=== PATIENT | male | born 1935 | race Caucasian/White ===

== ENCOUNTER 2017-09-13 08:22 | Outpatient (CLI) | payer MEDICARE ==
--- NOTE | 2017-09-13 11:26 | PET ---
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 COMPARISON: No prior PET scans. TECHNIQUE: IV injection F-18 Fluorodeoxyglucose (FDG) dose: 14.3 mCi. PET and attenuation-correction CT performed from skull base to proximal thighs. FINDINGS: SUV (standard uptake value) numbers given are maximum SUV's: Attenuation correction CT demonstrates approximately 4.0 cm infrarenal fusiform abdominal aortic aneu rysm. Suture line around the distal portion of expanded stomach, and additional surgical clips rack pusher al to the stomach in the upper abdominal cavity. Heavy atherosclerotic calcification of LAD. Multiple round moderately hypodense lesions in the left and right lobes of the liver. The largest one is a 3. 0 cm round hypodense lesion in hepatic segment II of the left lobe of the liver. It has a noncontrast CT attenuation of 20 HU. The FDG uptake has maximum SUV of 2.9. However, the SUV of background liver parenchyma is 3.5, and therefore this is indeterminate. There is an approximately 5.0 x 5.5 cm mass in the gastric fundus with density of 24 HU. It is not si gnificantly FDG-avid, with maximum SUV of 2.7. No abnormally FDG-avid lesion is identified in the abd omen, pelvis, chest, or neck. IMPRESSION: 1. 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 Therefore , this PET scan cannot be reliably used to evaluate for malignant lymphadenopathy and distant metasta sis. 2. Multiple round hypodense lesions throughout the liver. Densities are higher than serous fluid. It is uncertain whether these represent cysts or metastatic lesions from the GIST tumor. Recommend [facility] multiphase MRI or multiphase CT of the abdomen (liver mass protocol) with and without contrast. 3. Evidence for previous gastric and intestinal surgery. 4. 4.0 cm infrarenal abdominal aortic aneurysm. 5. Coronary atherosclerosis. JACQUI Carroll POS: VIKTORIA
== END 2017-09-13 08:23 | disposition home or self-care (01) ==
LOC: PET 08:22
PROVIDERS: ATTEND Internal Medicine Hematology & Oncology
DX: C49.A2 Gastrointestinal stromal tumor of stomach (principal); I71.4 Abdominal aortic aneurysm, without rupture; I25.10 Atherosclerotic heart disease of native coronary artery without angina pectoris; K76.9 Liver disease, unspecified
CPT/HCPCS: 78815; A9552

== ENCOUNTER 2017-10-04 14:18 | Outpatient (CLI) | payer MEDICARE ==
--- NOTE | 2017-10-05 09:05 | MRI ---
MRI ABDOMEN WITH AND WITHOUT CONTRAST: HISTORY: CA49.A9. Evaluate for metastatic disease. COMPARISON: PET CT 09/13/17. FINDINGS: The exam is noted on the phase of contrast due to the injector being broken. There is mass within th e lesser curvature of the stomach with minimal central enhancement and predominantly peripheral nodul ar and septal enhancement. Mass measures approximately 5.3 x 4.9 cm. Multiple masses are present wi thin the liver which have similar appearance with minimal central enhancement. In hepatic segment 2 is a mass which on the delayed phases does appear to have some peripheral and septal enhancement conc erning for a metastatic focus. This mass measures 2.5 x 2.6 cm with peripheral halo of enhancement. There are masses within hepatic segment 4A and segment 8 which are much smaller and even on delayed phase does not definitely have central enhancement, although this still is concerning. No significan t diffusion restriction of these masses, although there is no significant diffuse restriction in the gastric mass either. In hepatic segment 7, there is a mass with some faint septal enhancement on del ayed phase measuring 1.7 x 1.7 cm concerning for metastatic focus. Minimal central enhancement. There appears to be some old subcapsular hemorrhage along the spleen. Mild aneurysmal dilatation of the infrarenal abdominal aorta measuring up to 4.2 cm. Multiple parapelvic cysts and intraparenchyma l renal cysts. The aortic aneurysm may reflect a component of dissection as an intimal flap is seen series 14 of 77. No abnormal adenopathy. No dilated loops of bowel in the abdomen. IMPRESSION: 1. Multiple hepatic masses with masses of segment 2 and 7 having some low-grade peripheral internal a nd septal enhancement on the delayed phase. This follows the enhancement pattern of the predominantl y necrotic minimally enhancing mass of the lesser curvature of the stomach and the fundus. This make s all the T2 hyperintense foci within the liver suspicious for metastases for which only the largest ones can be seen within any significant enhancement. 2. Aneurysmal dilatation of the abdominal aorta, this is felt to represent a component of dissection as an intimal flap is seen. Thoracic surgical consultation recommended. 3. Evidence of an old subcapsular hemorrhage of the spleen. 4. The hepatic masses were likely non FDG avid on the PET CT due to the minimal solid internal compo nents with predominant internal necrosis. POS: NEREIDA
== END 2017-10-04 14:19 | disposition home or self-care (01) ==
LOC: SCSMRI 14:18
PROVIDERS: ATTEND Internal Medicine Hematology & Oncology
DX: C49.A9 Gastrointestinal stromal tumor of other sites (principal); R16.0 Hepatomegaly, not elsewhere classified; K31.9 Disease of stomach and duodenum, unspecified; I71.4 Abdominal aortic aneurysm, without rupture
CPT/HCPCS: 74183; 82565

== ENCOUNTER 2018-04-26 08:27 | Outpatient (CLI) | payer MEDICARE ==
--- NOTE | 2018-04-26 13:21 | PET ---
PET CT: HISTORY: 82-year-old male with GIST (gastrointestinal stomal tumor) of the stomach. Exam requested for restagi ng. TECHNIQUE: PET scanning with CT attenuation correction was performed from the base of the brain through the prox imal thighs following the intravenous administration of 12.2 mCi F18-FDG in the right hand. Imaging w as performed after an uptake interval of 59 minutes. COMPARISON: PET CT dated 09/13/17. FINDINGS: There is physiologic activity in the GI and tracts, and the visualized portions of the brain. No hypermetabolic pulmonary nodules, liver, adrenal, or skeletal lesions are seen. No abnormal FDG lo calization is seen in the gastric mass or the liver lesions seen on the CT scan used for attenuation correction. No linda hypermetabolism is seen in the neck, chest, abdomen, or pelvis. The CT scan used for attenuation correction demonstrates no evidence for pleural effusions or ascites . The 4.0 cm infrarenal abdominal aortic aneurysm is stable. IMPRESSION: No evidence of FDG-avid tumor or metastatic disease. POS: VIKTORIA
== END 2018-04-26 08:28 | disposition home or self-care (01) ==
LOC: PET 08:27
PROVIDERS: ATTEND Internal Medicine Hematology & Oncology
DX: C49.A0 Gastrointestinal stromal tumor, unspecified site (principal)
CPT/HCPCS: 78815; A9552

== ENCOUNTER 2018-10-29 07:08 | Outpatient (CLI) | payer MEDICARE ==
--- NOTE | 2018-10-29 12:59 | PET ---
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 Exam is requested for restaging. COMPARISON: PET CT dated 04/26/2018. TECHNIQUE: PET scanning with CT attenuation correction was performed from the base of the brain through the prox imal thighs, following the intravenous administration of 13.7 millicuries of F18 fluorodeoxyglucose i n the right antecubital fossa. FINDINGS: There is physiologic activity in the GI and tracts in the visualized portions of the brain. No hypermetabolic pulmonary nodules or liver, adrenal, or skeletal lesions are seen. No abnormal FDG localization is seen in the gastric mass or the liver lesions seen on the CT scan used for attenuati on correction. No linda hypermetabolism is noted in the neck, chest, abdomen, or pelvis. There is focally intense uptake in the region of the cecum, with an SUV of 8.2, which is new since last exam. The CT scan used for attenuation correction demonstrates no evidence of pleural effusions or ascites. The infrarenal abdominal aortic aneurysm is larger, measuring 4.4 cm on the current exam (previousl y 4 cm). IMPRESSION: 1. Interval development of a hypermetabolic focus in the cecum, which should be evaluated with colon oscopy. No other evidence of fluorodeoxyglucose-avid tumor or metastatic disease is seen. 2. Interval increase in the size of the infrarenal abdominal aortic aneurysm, from 4 cm on the previ ous study to 4.4 cm on the current examination. POS: VIKTORIA
== END 2018-10-29 07:09 | disposition home or self-care (01) ==
LOC: PET 07:08
PROVIDERS: ATTEND Internal Medicine Hematology & Oncology
DX: C49.A0 Gastrointestinal stromal tumor, unspecified site (principal); I71.4 Abdominal aortic aneurysm, without rupture
CPT/HCPCS: 78815; A9552

== ENCOUNTER 2019-07-24 08:23 | Outpatient (CLI) | payer MEDICARE ==
--- NOTE | 2019-07-24 12:21 | PET ---
PET CT: HISTORY: An 83-year-old male with GIST. Exam requested to evaluate for subsequent therapy. TECHNIQUE: PET scanning with CT attenuation correction was performed from the base of the brain through the prox imal thighs following the intravenous administration of 11 mCi [id number]. COMPARISON: PET CT dated 10/29/2018. FINDINGS: There has been interval development of hypermetabolic activity in the 6.5 cm mass in the lateral segm ent of the left lobe of the liver with an SUV of 10.6 and within the lesser curvature of the stomach with an SUV of 10.3. The remainder of the low-density lesions in the right lobe of the liver demonst rate no abnormal FDG localization. No linda hypermetabolism is seen in the neck, chest, axillae, abdomen, or pelvis. No hypermetabolic pulmonary nodules, adrenal, or skeletal lesions are seen. There is physiologic activity in the GI and tracts and the visualized portions of the brain. The CT scan used for attenuation correction demonstrates no evidence of pleural effusions or ascites. The 4.4 cm infrarenal abdominal aortic aneurysm is stable. IMPRESSION: Interval development of hypermetabolic activity in the gastric mass and liver mass in the lateral seg ment of the left lobe of the liver since 10/29/2018. POS: VIKTORIA
== END 2019-07-24 08:24 | disposition home or self-care (01) ==
LOC: PET 08:23
PROVIDERS: ATTEND Internal Medicine Hematology & Oncology
DX: C49.A9 Gastrointestinal stromal tumor of other sites (principal)
CPT/HCPCS: 78815; A9552

== ENCOUNTER 2019-09-19 08:18 | Outpatient (CLI) | payer MEDICARE ==
--- NOTE | 2019-09-19 10:20 | PET ---
Exam: PET SCAN WITH CT ATTENUATION CORRECTION: HISTORY: Gastrointestinal stromal tumor. COMPARISON: 07/24/2019, 10/29/2018. TECHNIQUE: PET scan with CT attenuation correction is performed from the base the brain to the proxim al thighs following the intravenous administration of 13 mCi of [id number] FINDINGS: Head and neck: No abnormal FDG localization. Chest: No abnormal FDG localization. CT used for attenuation correction demonstrates extensive mota ry artery disease. There is calcification of the aortic valve and scattered calcification in the visualized aorta. Stable aneurysmal dilatation of the infrarenal abdominal aorta. Abdomen and pelvis: Redemonstration of a hypermetabolic focus within the lumen of the stomach. Maximu m SUV is 6.7. Previously, the maximum SUV was 10.3. No additional abnormal FDG localization in the alimentary canal. There is a large hypermetabolic focus involving the left hepatic lobe. Maximum SUV is 11.8. Previousl y, the maximum SUV was 10.6. CT used for attenuation correction does demonstrate interval increase in size. Currently, the left hepatic lesion measures 7.9 x 8.4 cm, previously measuring 7.4 x 4.6 cm. Osseous structures: No abnormal FDG localization. IMPRESSION: Interval increase in size of a metastatic lesion in the left hepatic lobe, suggesting progression of disease. Transcribed Date/Time: 09/19/2019 10:40 AM
== END 2019-09-19 08:19 | disposition home or self-care (01) ==
LOC: PET 08:18
PROVIDERS: ATTEND Internal Medicine Hematology & Oncology
DX: C49.A9 Gastrointestinal stromal tumor of other sites (principal); C78.7 Secondary malignant neoplasm of liver and intrahepatic bile duct
CPT/HCPCS: 78815; A9552

== ENCOUNTER 2020-02-14 19:31 | Observation (INO) | payer MEDICARE, OTHER ==
[2020-02-14 19:56] LABS: Hemoglobin 11.2 g/dL (14.0-18.0); Mean Corpuscular HGB CONC 35.4 g/dL (32.0-36.0); Mean Corpuscular Hemoglobin 39.1 pg (27.0-31.0); Mean Platelet Volume 8.3 fL (7.4-10.4); Platelet Count 182 thou/uL (130-400); RBC Distribution Width 14.3 % (11.5-14.5); Red Blood Cell (RBC) Count 2.86 mill/uL (4.70-6.10); White Blood Cell (WBC) Count 4.2 thou/uL (4.8-10.8)
--- NOTE | 2020-02-14 20:15 | RAD ---
CHEST ONE VIEW: 02/14/20 HISTORY: Syncopal episode. Heart size is enlarged. Postop sternotomy changes are seen. The lungs are clear of any infiltrative p rocess. No signs of failure. IMPRESSION: Cardiomegaly. POS: JACEK
[2020-02-14 20:17] LABS: ALT (SGPT) 18 U/L (8-55); AST (SGOT) 22 U/L (5-34); Albumin 3.7 g/dL (3.4-4.8); Alkaline Phosphatase 74 U/L (40-110); Anion Gap 14 mmol/L (10-20); BUN (Urea Nitrogen) 27 mg/dL (8.4-25.7); Bilirubin, Total 1.8 mg/dL (0.2-1.2); CK (CPK) 121 U/L (30-200); Calc. Creatinine Clearance 0 mL/min (70-130); Calcium 8.7 mg/dL (7.8-10.44); Carbon Dioxide 22 mmol/L (23-31); Chloride 104 mmol/L (98-107); Estimated GFR-MDRD 39; Globulin 2.7 g/dL (2.4-3.5); Glucose 109 mg/dL (83-110); Lipase 37 U/L (8-78); Potassium 4.7 mmol/L (3.5-5.1); Protein, Total 6.4 g/dL (5.8-8.1); Sodium 135 mmol/L (136-145)
[2020-02-14 20:20] LABS: Hypochromia SLIGHT = 6-15 cells (100X) (0-5/hpf); Lymphocytes 18 % (21-51); MDiff Complete? YES; Macrocytosis SLIGHT = 6-15 cells (100X) (0-5/hpf); Monocytes 14 % (0-10); Neutrophil 68 % (42-75); Platelet Morphology Comment Appears Adequate
[2020-02-14] MEDS ORDERED: Acetaminophen 325 MG TAB ONE (21:09)
[2020-02-14] MEDS ORDERED: Aspirin Chewable 81 MG TAB ONE (21:22)
[2020-02-14 22:45] VITALS: BMI 33.0
[2020-02-14] MEDS ORDERED: Sodium Chloride 0.9% 1,000 ML IV SCH (22:45)
--- NOTE | 2020-02-14 22:48 | PDOC.HHP ---
Hospitalist HPI - History of Present Illness Near syncope History of Present Illness: 84-year-old gentleman with a history of significant coronary artery disease including open heart surgery and 7 cardiac stents presented to the emergency department because he felt he almost passed out. Patient stated he had been feeling faint all day and was broken out in sweat intermittently. He took a dose of sublingual nitroglycerin which did not help his symptoms. His heart rate a monitor worker in the ED was as low as 53. Initial troponin is negative. Chest x-ray showed no acute disease. EKG demonstrated sinus bradycardia at 55, T wave inversions and the lateral leads and lead I and aVL. Patient is placed under observation for further syncope work-up. Hospitalist ROS - Review of Systems Other: Except as documented, all other systems reviewed and negative. - Medication Medications: Medication Instructions Recorded Confirmed Type Aspirin 81 mg PO DAILY 02/15/20 02/15/20 History Carvedilol 25 mg PO DAILY 02/15/20 02/15/20 History Clopidogrel Bisulfate [Plavix] 75 mg PO DAILY 02/15/20 02/15/20 History Enalapril Maleate 20 mg PO BID 02/15/20 02/15/20 History Famotidine 20 mg PO DAILY 02/15/20 02/15/20 History Furosemide [Lasix] 20 mg PO DAILY PRN 02/15/20 02/15/20 History Isosorbide Mononitrate [Isosorbide 30 mg PO BID 02/15/20 02/15/20 History Mononitrate ER] Levothyroxine Sodium [Synthroid] 125 mcg PO DAILY 02/15/20 02/15/20 History SUNitinib Malate [Sutent] 1 cap PO DAILY 02/15/20 02/15/20 History Simvastatin 20 mg PO DAILY 02/15/20 02/15/20 History Spironolactone 25 mg PO DAILY 02/15/20 02/15/20 History Hospitalist History - Past Medical History Cardiac: reports: CAD, HTN, Hyperlipidemia Heme/Onc: reports: Cancer (GI stromal tumor) - Past Surgical History Other Surgical History: Bowel resection, triple bypass surgery. - Family History Other Family History: Reviewed and no significant. - Social History Smoking Status: Never smoker Alcohol: reports: None Drugs: reports: none Living Situation: With Family - Exam General Appearance: NAD, awake alert Eye: PERRL, anicteric sclera ENT: normocephalic atraumatic, no oropharyngeal lesions, moist mucosa Neck: supple, symmetric, no JVD, no thyromegaly Heart: RRR, no murmur, no gallops Respiratory: CTAB, no wheezes, no rales, no ronchi Gastrointestinal: soft, non-tender, non-distended, normal bowel sounds Extremities: no cyanosis, no edema Skin: normal turgor, no rashes Neurological: cranial nerve grossly intact, no weakness, no focal deficits Musculoskeletal: normal tone, normal strength Psychiatric: normal affect, normal behavior, A&O x 3 Hospitalist Results - Labs Result Diagrams: 02/15/20 01:49 02/15/20 01:49 Lab results: WBC 4.2 thou/uL (4.8-10.8) L 02/14/20 19:47 Hgb 11.2 g/dL (14.0-18.0) L 02/14/20 19:47 Hct 31.6 % (42.0-52.0) L 02/14/20 19:47 MCV 110.0 fL (78.0-98.0) H 02/14/20 19:47 Plt Count 182 thou/uL (130-400) 02/14/20 19:47 Sodium 135 mmol/L (136-145) L 02/14/20 19:47 Potassium 4.7 mmol/L (3.5-5.1) 02/14/20 19:47 Chloride 104 mmol/L (98-107) 02/14/20 19:47 Carbon Dioxide 22 mmol/L (23-31) L 02/14/20 19:47 BUN 27 mg/dL (8.4-25.7) H 02/14/20 19:47 Creatinine 1.68 mg/dL (0.7-1.3) H 02/14/20 19:47 Glucose 109 mg/dL (83-110) 02/14/20 19:47 Calcium 8.7 mg/dL (7.8-10.44) 02/14/20 19:47 Total Bilirubin 1.8 mg/dL (0.2-1.2) H 02/14/20 19:47 AST 22 U/L (5-34) 02/14/20 19:47 ALT 18 U/L (8-55) 02/14/20 19:47 Alkaline Phosphatase 74 U/L (40-110) 02/14/20 19:47 Creatine Kinase 121 U/L (30-200) 02/14/20 19:47 Troponin I Less than 0.010 ng/mL (< 0.028) 02/14/20 19:47 B-Natriuretic Peptide 172.8 pg/mL (0-100) H 02/14/20 19:47 Serum Total Protein 6.4 g/dL (5.8-8.1) 02/14/20 19:47 Albumin 3.7 g/dL (3.4-4.8) 02/14/20 19:47 Lipase 37 U/L (8-78) 02/14/20 19:47 - Radiology Interpretation Chest x-ray Status: report reviewed by me (No acute cardiopulmonary process.) Hospitalist H&P A/P - Problem (1) Syncope Code(s): R55 - SYNCOPE AND COLLAPSE Status: Acute (2) Coronary artery disease Code(s): I25.10 - ATHSCL HEART DISEASE OF [place] CORONARY ARTERY W/O ANG PCTRS Status: Acute (3) Sinus bradycardia Code(s): R00.1 - BRADYCARDIA, UNSPECIFIED Status: Acute (4) GIST (gastrointestinal stromal tumor), malignant Code(s): C49.A0 - GASTROINTESTINAL STROMAL TUMOR, UNSPECIFIED SITE Status: Acute (5) Liver metastasis Code(s): C78.7 - SECONDARY MALIG NEOPLASM OF LIVER AND INTRAHEPATIC BILE DUCT Status: Acute (6) Hypertension Code(s): I10 - ESSENTIAL (PRIMARY) HYPERTENSION Status: Acute - Plan Plan: Place under observation. Continue to trend troponin. Aspirin, beta-luis armando. Check lipid profile Check echocardiogram Nuclear stress test Obtain orthostatic vitals Cardiology consult. Validate and reconcile home medications. Continue oral chemotherapy
[2020-02-14 23:34] LABS: Troponin I 0.019 ng/mL (< 0.028)
[2020-02-15 02:10] LABS: #Basophils 0.1 thou/uL (0.0-0.2); #Eosinphils 0.1 thou/uL (0.0-0.7); #Monocytes 0.4 thou/uL (0.11-0.59); #Neutrophils 2.3 thou/uL (1.40-6.50); %Basophils 1.3 % (0.0-1.0); %Eosinophils 2.1 % (0.0-10.0); %Monocytes 11.3 % (0.0-10.0); %Neutrophils 60.4 % (42.0-75.0); Hemoglobin 10.9 g/dL (14.0-18.0); Mean Corpuscular HGB CONC 35.6 g/dL (32.0-36.0); Mean Corpuscular Hemoglobin 39.2 pg (27.0-31.0); Platelet Count 164 thou/uL (130-400); RBC Distribution Width 14.1 % (11.5-14.5); Red Blood Cell (RBC) Count 2.77 mill/uL (4.70-6.10); White Blood Cell (WBC) Count 3.9 thou/uL (4.8-10.8)
[2020-02-15 02:33] LABS: Anion Gap 15 mmol/L (10-20); BUN (Urea Nitrogen) 25 mg/dL (8.4-25.7); Calc. Creatinine Clearance 60 mL/min (70-130); Calcium 8.3 mg/dL (7.8-10.44); Carbon Dioxide 22 mmol/L (23-31); Chloride 103 mmol/L (98-107); Estimated GFR-MDRD 48; Glucose 113 mg/dL (83-110); Potassium 4.1 mmol/L (3.5-5.1); Sodium 136 mmol/L (136-145)
[2020-02-15 02:34] LABS: Troponin I 0.019 ng/mL (< 0.028)
--- NOTE | 2020-02-15 08:35 | PDOC.FMACP ---
Advance Care Planning - Problem (1) Syncope Status: Acute Code(s): R55 - SYNCOPE AND COLLAPSE (2) Coronary artery disease Status: Acute Code(s): I25.10 - ATHSCL HEART DISEASE OF [place] CORONARY ARTERY W/O ANG PCTRS (3) Sinus bradycardia Status: Acute Code(s): R00.1 - BRADYCARDIA, UNSPECIFIED (4) GIST (gastrointestinal stromal tumor), malignant Status: Acute Code(s): C49.A0 - GASTROINTESTINAL STROMAL TUMOR, UNSPECIFIED SITE (5) Liver metastasis Status: Acute Code(s): C78.7 - SECONDARY MALIG NEOPLASM OF LIVER AND INTRAHEPATIC BILE DUCT (6) Hypertension Status: Acute Code(s): I10 - ESSENTIAL (PRIMARY) HYPERTENSION - Note Summary: Advanced Care Planning was discussed. The diagnosis, prognosis and goals of care were discussed. Appropriate forms and documentation to accomplish the goals of care were discussed. All questions were answered. The Palliative Care Team will be engaged to assist with completion of any outstanding forms that are needed. Time Spent (mins): 16
[2020-02-15] MEDS ORDERED: Enoxaparin Sodium 40 MG/0.4 ML SYRINGE SC SCH (09:00)
[2020-02-15] MEDS ORDERED: Regadenoson 0.4 MG/5 ML SYRINGE ONE (12:36)
[2020-02-15] MEDS ORDERED: Furosemide 20 MG TAB PO PRN (12:38)
--- NOTE | 2020-02-15 12:54 | PDOC.HOSPP ---
- Subjective Encounter Date: 02/15/20 Encounter Time: 12:40 Subjective: f/u for near syncope of unclear etiology. Initially received IVF's now d/c'd. - Objective Vital Signs & Weight: Vital Signs (12 hours) Temp Pulse Resp BP Pulse Ox 02/15/20 07:21 98.3 F 58 L 16 132/61 97 02/15/20 03:42 97.3 F L 60 18 127/59 L 97 Weight Weight 230 lb I&O: 02/14/20 02/15/20 02/16/20 06:59 06:59 06:59 Intake Total 640 Output Total 125 Balance 515 Result Diagrams: 02/15/20 01:49 02/15/20 01:49 Additional Labs: Laboratory Tests 02/14/20 02/14/20 02/14/20 19:47 19:47 19:47 WBC 4.2 L Hgb 11.2 L MCV 110.0 H Carbon Dioxide 22 L BUN 27 H Creatinine 1.68 H Troponin I Less than 0.010 B-Natriuretic Peptide 02/14/20 02/14/20 02/15/20 19:47 22:53 01:49 WBC Hgb MCV Carbon Dioxide BUN Creatinine Troponin I 0.019 0.019 B-Natriuretic Peptide 172.8 H EKG Reviewed by me: Yes (Tele - sinus [place]) Hospitalist ROS - Medication Medications: Active Medications Generic Name Dose Route Start Last Admin Trade Name Freq PRN Reason Stop Dose Admin Enoxaparin Sodium 40 mg 02/15/20 09:00 02/15/20 08:52 Enoxaparin Sodium 40 Mg/0.4 Ml Syringe SC 40 mg 0900 PONCHO Administration Hosp A/P (1) Near syncope Status: Acute Plan: Etiology unclear, 2D echo pending, check Orthostatic vitals, CHARGE OPERATOR pending, ? contribution of dehydration (2) Coronary artery disease Code(s): I25.10 - ATHSCL HEART DISEASE OF [place] CORONARY ARTERY W/O ANG PCTRS Status: Chronic Plan: CHARGE OPERATOR pending, 2D echo pending, ASA/Plavix/Coreg (3) Sinus bradycardia Code(s): R00.1 - BRADYCARDIA, UNSPECIFIED Status: Chronic Plan: Stable currently, continue Tele monitoring (4) Acute kidney injury superimposed on CKD Code(s): N17.9 - ACUTE KIDNEY FAILURE, UNSPECIFIED; N18.9 - CHRONIC KIDNEY DISEASE, UNSPECIFIED Status: Acute Plan: Start low-volume IVF's, avoid nephrotoxic meds and limit contrast exposure - Plan out of bed/ambulate, DVT proph w/SCDs Stable currently CHARGE OPERATOR pending today 2D echo pending Start IVF's NS @ 75ml/h Continue ASA/Plavix/Coreg AM lab: BMP, CBC
[2020-02-15] MEDS ORDERED: Sodium Chloride 0.9% 1,000 ML IV SCH (13:15)
[2020-02-15 13:25] LABS: SARS-CoV-2 MS2 Positive; SARS-CoV-2 N Gene Negative; SARS-CoV-2 S Gene Negative; SARS-CoV-2 by NAA Not Detected (NotDetected); SARS-CoV-2 orf1ab Negative
[2020-02-15 13:58] VITALS: TEMP 98.1
--- NOTE | 2020-02-15 15:23 | CON ---
DATE OF CONSULTATION: REASON FOR CONSULTATION: Lightheadedness, presyncope. PRIMARY RESEARCH ELECTRICIAN: Daniel Medina MD HISTORY OF PRESENT ILLNESS: Mr. Mata is an 84-year-old gentleman who has a history of CAD, status post bypass surgery in addition to 7 to 8 stents per patient. He states he has had significant stressors recently. He states he was resting in his van. He quickly. He developed lightheadedness and presyncope. No true syncope noted. No chest pain, pressure, shortness of breath, or other associated symptoms. This is unlike his previous episode of angina prior to stent placement. He states he recently underwent coronary angiography [address] Daniel Medina. He had a stent placed. He also admits to not having good p.o. intake over the last several days. He has a history of having enlarged heart, currently on Coreg and Plavix. PAST MEDICAL HISTORY: CAD, status post stent placement and bypass surgery, hypertension, hyperlipidemia, stomach cancer, and bowel resection. HOME MEDICATIONS: Include: 1. Aspirin. 2. Carvedilol. 3. Plavix. 4. Enalapril. 5. Famotidine. 6. Lasix. 7. Isosorbide. 8. Levothyroxine. 9. . 10. Simvastatin. 11. Spironolactone. REVIEW OF SYSTEMS: A 10-point review of systems is reviewed and is as above. SOCIAL HISTORY: No current tobacco or alcohol use. PHYSICAL EXAMINATION: GENERAL: Patient is a pleasant male who is in no acute distress. The patient appears their stated age. VITAL SIGNS: Blood pressure 152/72, pulse 56, and temperature 98.1. NEUROLOGIC: The patient is alert and oriented x3 with no focal neurologic deficits. HEENT: Sclerae without icterus. Mouth has moist mucous membranes with normal pallor. NECK: No JVD. Carotid upstroke brisk. No bruits bilaterally. LUNGS: Clear to auscultation with unlabored respirations. BACK: No scoliosis or kyphosis. CARDIAC: Regular rate and rhythm with normal S1 and S2. No S3 or S4 noted. No significant rubs, murmurs, thrills, or gallops noted throughout the precordium. PMI is not displaced. There is no parasternal heave. ABDOMEN: Soft, nontender, nondistended. No peritoneal signs present. No hepatosplenomegaly. No abnormal striae. EXTREMITIES: 2+ femoral and 2+ dorsalis pedis pulses. No cyanosis, clubbing, or edema. SKIN: No gross abnormalities. PERTINENT LABORATORY DATA: CK-troponin negative. Hemoglobin 10.9. Creatinine 1.14, down from 1.68. BNP of 172. Stress and rest myocardial perfusion study pending. IMPRESSION: 1. Presyncope. 2. Coronary artery disease. 3. Status post bypass surgery. 4. Status post stent placement. RECOMMENDATIONS: We will await findings on a recent stress study. His symptoms are likely related to volume contraction. His creatinine and BUN were both elevated suggesting the above. If his scan was felt to be low risk, it would be okay from my standpoint to discharge home with close outpatient followup. He can follow up with Dr. Daniel Medina. Otherwise, I have no further recommendations. Job ID: [id number]
--- NOTE | 2020-02-15 15:51 | NM ---
MYOCARDIAL PERFUSION SCAN WITH SPECT IMAGING: History: Chest pain. History of coronary artery disease. Technique: Examination was performed using 28.1 mCi 99M Technetium Sestamibi on stress and 11 mCi on the resting images. FINDINGS: There is a persistent fixed defect in the lateral wall. No definite ischemic change. Wall motion: There is suggestion of some hypokenesis within the lateral wall. Left ventricular ejection fraction: The calculated left ventricular ejection fraction is 43%. IMPRESSION: Lateral wall scar. Reduced ejection fraction of 43%. POS: OFF
[2020-02-15 16:25] VITALS: BP 147/66
[2020-02-15] MEDS ORDERED: Lisinopril 20 MG TAB PO SCH (21:00)
[2020-02-15] MEDS ORDERED: FLU VACC QS2020-21(65YR UP)/PF 240 MCG/0.7 ML SYRINGE IM ONE (21:00)
[2020-02-15] MEDS ORDERED: Atorvastatin Calcium 10 MG TAB PO SCH (21:00)
--- NOTE | 2020-02-15 21:49 | CON ---
DATE OF CONSULTATION: 02/15/2020 ADDENDUM: Mr. Mata's stress study was negative for ischemia. He did have a lateral wall scar with LVEF 43%. Based on his current symptoms and previous history of coronary artery disease and no ischemia, it would be okay from my standpoint to discharge home with close outpatient followup. We would recommend following up with his pouncer machine within 1 week. Otherwise, I have no further recommendations. Job ID: [id number]
--- NOTE | 2020-02-16 03:26 | DIS ---
DATE OF ADMISSION: 02/14/2020 DATE OF DISCHARGE: 02/15/2020 DISCHARGE DIAGNOSES: 1. Near syncope secondary to dehydration. 2. Coronary artery disease, chronic and stable. 3. Sinus bradycardia, chronic. 4. Acute kidney injury on chronic kidney disease stage 2. 5. Gastrointestinal stromal tumor. CONSULTATIONS: Dr. Figueroa Osborne with Cardiology Service. PERTINENT LABORATORY AND X-RAY FINDINGS: Creatinine ranged between 1.41 to 1.68. Estimated GFR ranged between 39 to 48. Troponin I negative x3. BNP 173. Lipase 37. CBC showed a hemoglobin ranged between 10.9 to 11.2. COVID-19 PCR not detected, 02/14/2020. Portable chest x-ray dated 02/14/2020 showed cardiomegaly without acute process. Cardiolite stress test dated 02/15/2020 showed lateral wall scarring with ejection fraction of 43%. 2D transthoracic echocardiogram dated 02/15/2020 showed ejection fraction of 45% to 50%. Technically limited study with poor endocardial definition. Ojkrnkek-do-myxtae left atrial enlargement. Moderate mitral regurgitation. Moderate aortic regurgitation. Moderate aortic stenosis. HOSPITAL COURSE: The patient was admitted to the telemetry unit after presenting status post near syncopal episode. The patient underwent extensive evaluation with serial troponin I negative x3. The patient underwent cardiac stress testing showing a lateral wall scarring and ejection fraction calculated at 43%. The patient was evaluated by the Cardiology Service with recommendations for medical management and outpatient followup. The patient was noted with acute kidney injury in the context of chronic kidney disease and volume depletion, given IV fluids with overall stabilization of vital signs. The patient was encouraged in increased free water intake and follow up with his primary care provider. Overall, the patient did remain clinically stable during the hospital course, tolerating regular oral intake with stable vital signs. I have examined the patient at the time of discharge and discussed followup instructions. The patient verbalizes understanding and agreement, ready for discharge on 02/15/2020. DISCHARGE MEDICATIONS: 1. Aspirin 81 mg p.o. daily. 2. Plavix 75 mg p.o. daily. 3. Carvedilol 25 mg p.o. daily. 4. Enalapril 20 mg p.o. b.i.d. 5. Pepcid 20 mg p.o. daily. 6. Isosorbide mononitrate 30 mg p.o. b.i.d. 7. Lasix 20 mg p.o. daily. 8. Simvastatin 20 mg p.o. daily. 9. Spironolactone 25 mg p.o. daily. 10. Levothyroxine 125 mcg p.o. daily. 11. Sutent 37.5 mg per Medical Oncology recommendations. FOLLOWUP: The patient may follow up with Dr. Ronen Castro within 7 days of discharge. The patient may follow up with Dr. Daniel Medina with Cardiology Service. CONDITION ON DISCHARGE: Stable. ACTIVITY: Ad-daniel. DIET: Heart healthy. CODE STATUS: Full. DISPOSITION: Home, 02/15/2020. TIME SPENT: Total time preparing and coordinating discharge is 32 minutes. Job ID: [id number]
[2020-02-16] MEDS ORDERED: Levothyroxine Sodium 125 MCG TAB PO SCH (06:00)
[2020-02-16] MEDS ORDERED: Spironolactone 25 MG TAB PO SCH (08:00)
[2020-02-16] MEDS ORDERED: Aspirin Chewable 81 MG TAB PO SCH (09:00)
[2020-02-16] MEDS ORDERED: Carvedilol 25 MG TAB PO SCH (09:00)
[2020-02-16] MEDS ORDERED: SUNITINIB MALATE 37.5 MG PO SCH (09:00)
[2020-02-16] MEDS ORDERED: Clopidogrel Bisulfate 75 MG TAB PO SCH (09:00)
[2020-02-16] MEDS ORDERED: Famotidine 20 MG TAB PO SCH (09:00)
== END 2020-02-15 19:36 | disposition home or self-care (01) ==
LOC: ERS 19:31 → 2NO 21:08
PROVIDERS: ADMIT Internal Medicine; ATTEND Internal Medicine
DX: R55 Syncope and collapse (principal); R42 Dizziness and giddiness; I25.10 Atherosclerotic heart disease of native coronary artery without angina pectoris; R00.1 Bradycardia, unspecified; I12.9 Hypertensive chronic kidney disease with stage 1 through stage 4 chronic kidney disease, or unspecified chronic kidney disease; N18.2 Chronic kidney disease, stage 2 (mild); N17.9 Acute kidney failure, unspecified; E78.5 Hyperlipidemia, unspecified; C49.A0 Gastrointestinal stromal tumor, unspecified site; C78.7 Secondary malignant neoplasm of liver and intrahepatic bile duct; Z79.02 Long term (current) use of antithrombotics/antiplatelets; Z79.82 Long term (current) use of aspirin; Z79.899 Other long term (current) drug therapy; Z20.828 Contact with and (suspected) exposure to other viral communicable diseases
CPT/HCPCS: 71045; 78452; 80048; 80053; 82550; 83690; 83880; 84484 ×3; 85025 ×2; 93005; 93017; 93306; 99285; A9500; U0003; 36415; 87635; 96372; G0378; J1650; J2785

== ENCOUNTER 2020-03-04 21:26 | Observation (INO) | payer MEDICARE, OTHER ==
--- NOTE | 2020-03-04 21:57 | RAD ---
Chest AP view INDICATION: Syncope COMPARISON: February 14, 2020 FINDINGS: Lungs: The lungs are clear Cardiac silhouette: Stable mild cardiomegaly and post-CABG change Pulmonary vasculature: Normal Pleural spaces: No pleural effusion or pneumothorax is demonstrated. Upper abdomen: No abnormality seen. Osseous structures: No acute osseous abnormality. Additional findings: None. IMPRESSION: No acute cardiopulmonary abnormality.
[2020-03-04 22:28] LABS: #Eosinphils 0.2 thou/uL (0.0-0.7); #Lymphocytes 0.9 thou/uL (1.20-3.40); #Monocytes 0.6 thou/uL (0.11-0.59); #Neutrophils 2.7 thou/uL (1.40-6.50); %Basophils 0.9 % (0.0-1.0); %Eosinophils 4.8 % (0.0-10.0); %Lymphocytes 20.8 % (21.0-51.0); %Monocytes 12.9 % (0.0-10.0); %Neutrophils 60.6 % (42.0-75.0); Hemoglobin 11.1 g/dL (14.0-18.0); Mean Corpuscular HGB CONC 35.7 g/dL (32.0-36.0); Mean Corpuscular Hemoglobin 40.4 pg (27.0-31.0); Platelet Count 166 thou/uL (130-400); RBC Distribution Width 14.1 % (11.5-14.5); Red Blood Cell (RBC) Count 2.75 mill/uL (4.70-6.10); White Blood Cell (WBC) Count 4.5 thou/uL (4.8-10.8)
[2020-03-04 22:57] LABS: ALT (SGPT) 20 U/L (8-55); AST (SGOT) 29 U/L (5-34); Albumin 3.7 g/dL (3.4-4.8); Alkaline Phosphatase 84 U/L (40-110); Anion Gap 12 mmol/L (10-20); BUN (Urea Nitrogen) 23 mg/dL (8.4-25.7); Bilirubin, Total 1.3 mg/dL (0.2-1.2); Calc. Creatinine Clearance 0 mL/min (70-130); Calcium 8.4 mg/dL (7.8-10.44); Carbon Dioxide 26 mmol/L (23-31); Chloride 103 mmol/L (98-107); Estimated GFR-MDRD 55; Globulin 2.5 g/dL (2.4-3.5); Glucose 116 mg/dL (83-110); Potassium 4.2 mmol/L (3.5-5.1); Protein, Total 6.2 g/dL (5.8-8.1); Sodium 137 mmol/L (136-145)
[2020-03-04 23:11] LABS: CKMB 1.5 ng/mL (0-6.6)
[2020-03-04 23:21] LABS: Bilirubin Negative (Negative); Blood, Urine Negative (Negative); Clarity Clear (Clear); Glucose, Urine (Dipstick) Normal (Negative); Ketone, Urine Negative (Negative); Leukocyte Negative Leu/uL (Negative); Nitrite Negative (Negative); Protein, Urine (Dipstick) 20 mg/dL (Neg-Trace); Specific Gravity, Urine 1.027 (1.002-1.036); Urobilinogen 3 mg/dL (Less than 2); pH, Urine 5.5 (5.0-9.0)
[2020-03-05] MEDS ORDERED: Acetaminophen 325 MG TAB PO PRN (00:08)
--- NOTE | 2020-03-05 00:55 | PDOC.EVN ---
Event Note - Event Note Event Note: [id number] HP dictated
[2020-03-05] MEDS ORDERED: Sodium Chloride 0.9% 1,000 ML IV SCH (01:00)
--- NOTE | 2020-03-05 01:39 | HP ---
CHIEF COMPLAINT: Syncope. HISTORY OF PRESENT ILLNESS: Mr. Mata is an 84-year-old male with past medical history of GI stromal tumor with liver metastasis, congestive heart failure?, hypertension, among others, presented to the emergency room after 2 syncopal episodes. As per patient, he vomited twice and had syncopal episode. Workup in the emergency room, patient had troponin of 0.02. Lab work showed a WBC count of 4.5, hemoglobin 11.1, platelets 166. Chest x-ray; no acute finding. Patient's blood pressure was borderline low at 95/52. Patient was given IV fluid bolus NS with improvement in the blood pressure. Patient is being admitted to the hospital for further management. PAST MEDICAL HISTORY: 1. Congestive heart failure. 2. Hyperlipidemia. 3. GI stromal tumor. PAST SURGICAL HISTORY: 1. Triple bypass. 2. Bowel resection. SOCIAL HISTORY: Denies smoking, alcohol drinking, or drug abuse. FAMILY HISTORY: Reviewed, noncontributory. HOME MEDICATIONS: Please see home medication reconciliation form for updated medications. ALLERGIES: NO KNOWN ALLERGIES. REVIEW OF SYSTEMS: Review of 14 systems negative, except what is mentioned in the history of present illness. PHYSICAL EXAMINATION: GENERAL: Patient is awake, alert, not in acute distress. VITAL SIGNS: Blood pressure is 114/70, pulse is 64, respiratory rate is 18, temperature is 98, oxygen saturation 99% on room air. HEAD AND NECK: Normocephalic, atraumatic. NECK: Supple. No JVD. CHEST: Fair bilateral air entry. HEART: S1, S2. Regular. ABDOMEN: Soft, nontender. Bowel sounds present. NEUROLOGIC: Awake, alert, oriented. No focal deficits. PSYCH: Unable to assess. EXTREMITIES: No clubbing, no cyanosis. LABORATORY DATA: As mentioned above in the history of present illness. IMAGING DATA: As mentioned above in the history of present illness. ASSESSMENT: 1. Syncope. 2. Hypotension, resolved. 3. Vomiting. 4. 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 5. Congestive heart failure? On Lasix. 6. History of hypertension. PLAN: 1. Admit. 2. Telemonitoring. 3. Orthostatic vital signs. 4. Cautious IV fluids tonight, reassess in a.m. given his cardiac history. 5. Consider further cardiac workup if the patient continues to be symptomatic after fluid resuscitation. 6. Reconcile home medications. 7. DVT prophylaxis as appropriate. 8. Expected length of stay, at least 1 midnight if patient is stable and shows significant improvement. Job ID: [id number]
[2020-03-05 02:00] VITALS: BMI 32.7
[2020-03-05 02:59] LABS: Troponin I 0.025 ng/mL (< 0.028)
[2020-03-05 03:04] LABS: Anion Gap 14 mmol/L (10-20); BUN (Urea Nitrogen) 21 mg/dL (8.4-25.7); Calc. Creatinine Clearance 74 mL/min (70-130); Calcium 8.5 mg/dL (7.8-10.44); Carbon Dioxide 23 mmol/L (23-31); Chloride 104 mmol/L (98-107); Estimated GFR-MDRD 61; Glucose 118 mg/dL (83-110); Potassium 4.7 mmol/L (3.5-5.1); Sodium 136 mmol/L (136-145)
[2020-03-05 03:06] LABS: Hemoglobin 10.6 g/dL (14.0-18.0); MDiff Complete? YES; Mean Corpuscular HGB CONC 34.9 g/dL (32.0-36.0); Mean Platelet Volume 9.2 fL (7.4-10.4); Platelet Count 159 thou/uL (130-400); RBC Distribution Width 14.6 % (11.5-14.5); Red Blood Cell (RBC) Count 2.71 mill/uL (4.70-6.10); White Blood Cell (WBC) Count 3.7 thou/uL (4.8-10.8)
[2020-03-05 03:07] LABS: Band 6 % (5-11); Eosinophils 1 % (0-10); Lymphocytes 26 % (21-51); Monocytes 18 % (0-10); Neutrophil 49 % (42-75); Platelet Morphology Comment Appears Adequate
[2020-03-05 05:10] LABS: Troponin I 0.043 ng/mL (< 0.028)
[2020-03-05] MEDS ORDERED: SUNITINIB MALATE 37.5 MG PO SCH ×2 (09:00)
[2020-03-05] MEDS ORDERED: Aspirin 81 mg Enteric Coated Tablet PO SCH (09:00)
[2020-03-05] MEDS ORDERED: Levothyroxine Sodium 125 MCG TAB PO SCH (09:00)
[2020-03-05] MEDS ORDERED: Enoxaparin Sodium 30 MG/0.3 ML SYRINGE SC SCH (09:00)
[2020-03-05] MEDS ORDERED: FLU VACC QS2020-21(65YR UP)/PF 240 MCG/0.7 ML SYRINGE IM ONE (09:00)
[2020-03-05] MEDS ORDERED: Clopidogrel Bisulfate 75 MG TAB PO SCH (09:00)
[2020-03-05 11:03] LABS: SARS-CoV-2 MS2 Positive; SARS-CoV-2 N Gene Negative; SARS-CoV-2 S Gene Negative; SARS-CoV-2 by NAA Not Detected (NotDetected); SARS-CoV-2 orf1ab Negative
[2020-03-05 13:57] VITALS: BP 121/58; TEMP 97.4
--- NOTE | 2020-03-05 16:51 | DIS ---
DATE OF ADMISSION: 03/04/2020 DATE OF DISCHARGE: 03/05/2020 DISCHARGE DISPOSITION: Home. PRIMARY DISCHARGE DIAGNOSIS: Syncope with hypotension on arrival, resolved. SECONDARY DISCHARGE DIAGNOSES: 1. Coronary artery disease. 2. History of CHF. 3. Dyslipidemia. 4. 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 PROCEDURES DONE DURING HOSPITALIZATION: Chest x-ray done on the day of admission showed no acute cardiopulmonary abnormality. H and H 10 and 30, platelet count 159, white count 3.7. BUN 21, creatinine 1.1. BNP 109. Albumin 3.7. AST, ALT, and alkaline phosphatase were within normal limits. Total bilirubin 1.3. COVID-19 PCR was not detected on 03/05/2020. DISCHARGE MEDICATIONS: 1. Aspirin 81 mg p.o. daily. 2. Imdur extended release 30 mg twice daily. 3. Plavix 75 mg p.o. daily. 4. Simvastatin 20 mg p.o. daily. 5. Sunitinib for GIST as prescribed by his oncologist. 6. Levothyroxine 125 mcg p.o. daily. 7. Carvedilol 6.25 mg twice daily. 8. Enalapril 10 mg daily. 9. Protonix 40 mg p.o. daily. ALLERGIES: NO KNOWN DRUG ALLERGIES. DISCHARGE PLAN: The patient to follow up with Dr. Medina, his primary residential tech in 1 week. He needs to follow up with Dr. Ronen Castro, his primary care physician in 1 week. BRIEF COURSE DURING HOSPITALIZATION: The patient initially was brought to emergency room after he had an episode of reflux symptoms and threw up twice and had near syncopal episode. In view of this history, the patient was placed under observation on telemetry. His initial blood pressures were 95/52. He was given 2 L of fluid bolus and the blood pressure stabilized. His discharge blood pressure is 121/58. His cardiac medications were optimized. The patient was requested to stay another night to get a handle on the blood pressure and to help with reconciling discharge medication, but Mr. Mata was adamant about going home. He is advised to check blood pressure and pulse twice daily and record for 10 days to follow up with Dr. Medina for changes in his medication. He also needs to follow up with his oncologist for GIST tumor, for which he is on Sutent. Prior to discharge, he is ambulating and is eating well. Protonix has been prescribed at the time of discharge. Please note, I have seen and examined the patient on the day of discharge. Job ID: [id number] MTDD
== END 2020-03-05 14:45 | disposition home or self-care (01) ==
LOC: ERS 21:26 → 2NO 23:46
PROVIDERS: ADMIT Internal Medicine; ATTEND Internal Medicine
DX: R55 Syncope and collapse (principal); I25.10 Atherosclerotic heart disease of native coronary artery without angina pectoris; I11.0 Hypertensive heart disease with heart failure; I50.9 Heart failure, unspecified; E78.5 Hyperlipidemia, unspecified; E78.00 Pure hypercholesterolemia, unspecified; C49.A0 Gastrointestinal stromal tumor, unspecified site; C78.7 Secondary malignant neoplasm of liver and intrahepatic bile duct; I95.9 Hypotension, unspecified; Z79.82 Long term (current) use of aspirin; Z79.899 Other long term (current) drug therapy; Z20.828 Contact with and (suspected) exposure to other viral communicable diseases
CPT/HCPCS: 71045; 80048; 80053; 81003; 82553; 83735; 83880; 84484 ×3; 85025 ×2; 93005; 94760; 99285; U0003; 36415; 87635; 96360; 96361; 96372; G0378; J1650

== ENCOUNTER 2020-03-26 07:32 | Outpatient (CLI) | payer MEDICARE ==
--- NOTE | 2020-03-26 12:11 | PET ---
Radionucleotide PET scan with CT attenuation correction HISTORY: Gastrointestinal stromal tumor. Restaging. COMPARISON: 09/19/2019. FINDINGS: The heterogeneous area of increased activity involving the gastric cardia now shows max SUV 4.2 (previously 6.7). The large peripherally hypermetabolic mass expanding the lateral segment left liver lobe now shows max SUV 18.9 (previously 11.8). This mass is now 12.9 cm x 10.7 cm greatest diameters on the axial images (previously 7.9 cm x 8.4 cm). A new ill-defined low density mass within the anterior segment right liver lobe is 2.7 cm x 2.7 cm di ameters on the axial images and shows max SUV 6.0. A newly enlarged 3.4 cm periportal lymph node immediately anterior to the inferior vena cava shows ma x SUV 14.3. Multiple new hypermetabolic foci are present throughout the skeleton, including the spine: T3 vertebral body 12.0 max SUV T3 left transverse process and medial rib 6.3 T6 vertebral body 9.4 T7 vertebral body 10.4 T9 vertebral body 6.0 L5 vertebral body 4.5 S1 vertebral segment 5.8 Additional skeletal lesions: Left glenoid 6.2 max SUV Upper sternum 4.4 Left fourth rib 2.9 Left iliac body 3.9 Right iliac crest 5.0 Right sacrum body 4.6 Left acetabulum 12.4 Left pubic symphysis 3.9 Left ischium ramus 8.[address] attenuation correction images show calcified granuloma at the left posterior costoph renic angle. The gallbladder is surgically absent. Exophytic cyst from the lateral cortex of the left kidney is again demonstrated. Fusiform ectasia of the lower abdominal aorta and atherosclerosis again demonstrated. IMPRESSION : Severe interval worsening of metastatic disease involving the liver, skeleton, and a periportal lymph node.
== END 2020-03-26 07:33 | disposition home or self-care (01) ==
LOC: PET 07:32
PROVIDERS: ATTEND Internal Medicine Hematology & Oncology
DX: C49.A9 Gastrointestinal stromal tumor of other sites (principal); C78.7 Secondary malignant neoplasm of liver and intrahepatic bile duct; C79.51 Secondary malignant neoplasm of bone; C77.9 Secondary and unspecified malignant neoplasm of lymph node, unspecified
CPT/HCPCS: 78815; 80053; 82248; 83615; 84100; 84550; A9552